=== PATIENT | female | born 1960 | race Caucasian/White ===

== ENCOUNTER → 2017-08-26 | Outpatient (CLI) | payer BC | END | disposition home or self-care (01) | LOC: LAB 12:21 | PROVIDERS: ATTEND Obstetrics & Gynecology | DX: N39.0 Urinary tract infection, site not specified (principal) | CPT/HCPCS: 87086; 87088; 87186 ==

== ENCOUNTER → 2017-10-09 | Outpatient (CLI) | payer BC ==
[2017-10-09 10:48] LABS: Basophils # (auto) 0 uL; Basophils % (auto) 0.4 % (0.0-2.0); Eosinophils # (auto) 0 uL; Eosinophils % (auto) 0.9 % (0.0-7.0); Hematocrit 38.3 % (36.0-46.0); Hemoglobin 12.9 g/dL (12.2-16.2); Lymphocytes # (auto) 1.1 uL; Lymphocytes % (auto) 29.9 % (10.0-50.0); Mean Corpuscular Hemoglobin 30.8 pg (28.0-32.0); Mean Corpuscular Hgb Conc. 33.8 g/dL (32.0-36.0); Mean Corpuscular Volume 91.3 fL (80.0-100.0); Monocytes # (auto) 0.2 uL; Monocytes % (auto) 5.7 % (0.0-12.0); Neutrophils # (auto) 2.3 uL; Neutrophils % (auto) 63.1 % (37.0-80.0); Platelet Count (auto) 176 10^3/uL (140-450); Red Blood Cells 4.19 10^6/uL (4.0-5.20); Red Cell Distribution Width 12.7 % (11.8-14.3); White Blood Cell 3.6 10^3/uL (4.4-10.8)
[2017-10-09 10:50] LABS: Urine Bacteria NONE SEEN /hpf (None Seen); Urine Blood Negative /uL (Negative); Urine Specific Gravity 1.004 (1.001-1.035); Urine WBC <1 /hpf (0 - 5)
[2017-10-09 11:07] LABS: Albumin 4.3 g/dL (3.4-5.0); BUN/Creatinine Ratio 20.3; Bilirubin, Total 0.4 mg/dL (0.2-1.0); Calcium 8.8 mg/dL (8.5-10.1); Potassium 4.7 mmol/L (3.5-5.1); Total Protein 7.3 g/dL (6.4-8.2)
== END | disposition home or self-care (01) ==
LOC: LAB 10:13
PROVIDERS: ATTEND Nurse Practitioner
DX: E78.5 Hyperlipidemia, unspecified (principal); E55.9 Vitamin D deficiency, unspecified
CPT/HCPCS: 36415; 80053; 80061; 81001; 82306; 84443; 85025

== ENCOUNTER → 2020-02-26 | Outpatient (CLI) | payer BC ==
[2020-02-26 08:37] LABS: Urine Bacteria NONE SEEN /hpf (None Seen); Urine Blood Negative /uL (Negative); Urine Specific Gravity 1.011 (1.001-1.035); Urine WBC 3 /hpf (0 - 5)
[2020-02-26 08:43] LABS: Basophils # (auto) 0 10 ^3/uL (0-0.2); Basophils % (auto) 0.4 % (0.0-2.0); Eosinophils # (auto) 0.1 10 ^3/uL (0-0.8); Eosinophils % (auto) 2.2 % (0.0-7.0); Hematocrit 40.3 % (36.0-46.0); Hemoglobin 13.8 g/dL (12.2-16.2); Lymphocytes # (auto) 1.1 10 ^3/uL (0.4-5.4); Lymphocytes % (auto) 37.6 % (10.0-50.0); Mean Corpuscular Hemoglobin 31.1 pg (28.0-32.0); Mean Corpuscular Hgb Conc. 34.2 g/dL (32.0-36.0); Monocytes # (auto) 0.2 10 ^3/uL (0-1.3); Monocytes % (auto) 6.4 % (0.0-12.0); Neutrophils # (auto) 1.6 10 ^3/uL (1.6-8.6); Neutrophils % (auto) 53.4 % (37.0-80.0); Nucleated Red Blood Cells % 0.1 %; Platelet Count (auto) 225 10^3/uL (140-450); Red Blood Cells 4.43 10^6/uL (4.0-5.20); Red Cell Distribution Width 12.9 % (11.8-14.3)
[2020-02-26 09:18] LABS: Albumin 4.1 g/dL (3.4-5.0); Calcium 9.1 mg/dL (8.5-10.1); Potassium 4.9 mmol/L (3.5-5.1)
[2020-02-26 09:24] LABS: BUN/Creatinine Ratio 18.3; Bilirubin, Total 0.4 mg/dL (0.2-1.0); Total Protein 7.1 g/dL (6.4-8.2)
== END | disposition home or self-care (01) ==
LOC: LAB 08:15
PROVIDERS: ATTEND Internal Medicine
DX: I10 Essential (primary) hypertension (principal)
CPT/HCPCS: 36415; 80053; 80061; 81001; 82607; 82746; 83036; 84439; 84443; 85025

== ENCOUNTER → 2020-03-22 | Outpatient (CLI) | payer BC ==
[2020-03-22 11:10] LABS: Follicle Stimulating Hormone 94.5 IU/L (SEE BELOW); Leuteinizing Hormone 33.5 IU/L
== END | disposition home or self-care (01) ==
LOC: LAB 10:05
PROVIDERS: ATTEND Obstetrics & Gynecology
DX: N95.1 Menopausal and female climacteric states (principal)
CPT/HCPCS: 36415; 82670; 83001; 83002; 84403; 84443

== ENCOUNTER → 2020-05-01 | Outpatient (CLI) | payer BC | END | disposition home or self-care (01) | LOC: LAB 14:33 | PROVIDERS: ATTEND Internal Medicine | DX: E03.9 Hypothyroidism, unspecified (principal) | CPT/HCPCS: 36415; 84439; 84443 ==